=== PATIENT | female | born 1960 | race Caucasian/White ===

== ENCOUNTER 2016-08-19 18:27 | Inpatient (IN) | payer MEDICARE, OTHER ==
[~2016-08-19] VITALS: Ht 175.3 cm; Wt 79.8 kg
--- NOTE | 2016-08-19 18:54 | NUR ---
PT IS MEDICALLY CLEARED BY DR ACE. OFFERED FLUIDS AND COMFORT MEASURES.
[2016-08-19] MEDS ORDERED: DOCU100C36 PO (19:14)
[2016-08-19] MEDS ORDERED: ESCI10TA PO (19:14)
[2016-08-19] MEDS ORDERED: ACET325T53 PO (19:14)
[2016-08-19] MEDS ORDERED: POTA20TA83 PO (19:14)
[2016-08-19] MEDS ORDERED: MAGN2PIG IV (19:14)
[2016-08-19] MEDS ORDERED: IRON PO (19:14)
[2016-08-19] MEDS ORDERED: MORP2SYR IV (19:14)
[2016-08-19] MEDS ORDERED: ASPI81TA31 PO (19:14)
[2016-08-19] MEDS ORDERED: FAMO-132 PO (19:14)
[2016-08-19] MEDS ORDERED: PROP10TA10 PO (19:14)
[2016-08-19] MEDS ORDERED: MVI PO (19:14)
[2016-08-19] MEDS ORDERED: ZIPR20VI IM (19:14)
[2016-08-19] MEDS ORDERED: HYDR-3972 PO (19:14)
[2016-08-19] MEDS ORDERED: BENZ2TAB7 PO (19:14)
[2016-08-19] MEDS ORDERED: HYDR20VI6 IV (19:14)
[2016-08-19] MEDS ORDERED: ONDA2VIA2 IV (19:14)
[2016-08-19] MEDS ORDERED: DIVA500T7 PO (19:14)
[2016-08-19] MEDS ORDERED: MINERALS PO (19:14)
[2016-08-19] MEDS ORDERED: PERP2TAB5 PO ×2 (19:14)
--- NOTE | 2016-08-19 19:15 | NUR ---
Received report from MAGNOLIA Mayberry. Assumed care of pt at this time. Pt resting in position of comfort for self. Pt calm and cooperative at this time. Sitter at bedside. Admission pending.
--- NOTE | 2016-08-19 20:29 | NUR ---
Report called to MAGNOLIA Ambrocio. Preparing to transfer pt to the mental health unit
[2016-08-19] MEDS ORDERED: MAG HYDROX/AL HYDROX/SIMETH 30 ML LIQUID UDC PO PRN (21:00)
[2016-08-19] MEDS ORDERED: ACETAMINOPHEN 325 MG TABLET PO PRN (21:00)
[2016-08-19] MEDS ORDERED: MAGNESIUM HYDROXIDE 30 ML LIQUID UDC PO PRN (21:00)
[2016-08-19] MEDS ORDERED: TEMAZEPAM 7.5 MG CAPSULE PO PRN (21:00)
--- NOTE | 2016-08-19 22:51 | NUR ---
AT APPROX 2049, PATIENT WAS ADMITTED TO [facility] FROM [facility] ER ON A 5150 HOLD R/T SI STARTING ON 08/19/16 AT 1600 AND ENDINGS ON 08/22/16 AT 1600. PATIENT WAS CALM, AN COOPERATIVE AT TIME OF ADMISSION. FULL REPORT WAS OBTAINED BY ER NURSE PURVI. PATIENT WAS INFORMED OF HOLD, PATIENT'S RIGHTS AND ROOM, AND SHE VERBALIZED UNDERSTANDING. SHE DENIES ANY SI OR HI AT THIS TIME.
[2016-08-20 01:35] VITALS: BP 126/65
--- NOTE | 2016-08-20 06:55 | NUR ---
Nurses notes:GPS Patient refused blood drawn this morning. encourage x 3 yet still refused, she said, "I don't need any labs, i am leaving today, don't bother me." patient also refused to give a clean catch urine sample at this time. we will continue to encourage.
[2016-08-20] MEDS: NICOTINE 21 MG/24HR PATCH TD SCH (08:39)
[2016-08-20] MEDS ORDERED: ESCITALOPRAM OXALATE 10 MG TABLET NG SCH (14:15)
[2016-08-20] MEDS: DIVALPROEX 500 MG TABLET.DR PO SCH ×2 (15:30→20:35)
[2016-08-20] MEDS: BENZTROPINE MESYLATE 0.5 MG TABLET PO SCH ×2 (15:30→17:05)
--- NOTE | 2016-08-20 15:47 | NUR ---
Initial discharge instructions: [facility] at [facility] [[address] [place] [address]] [Tire Technician: Alejandra Kay ]. SW spoke with the patient's mother/conservator Analisa Bartholomew [phone] or [phone] who stated that she would like for the patient to return to the facility upon discharge. PIOTR spoke with the patient who also stated that she would like to return to the facility upon discharge. SW spoke with the school social worker at the facility, Alejandra who stated that they will be able to accept the patient back upon discharge. PIOTR will speak with the patient, family, and MD regarding most appropriate discharge plan. SS will form a safe and proper discharge.
[2016-08-20 16:00] VITALS: BP 131/69
[2016-08-20] MEDS ORDERED: HYDROCODONE/APAP 5-325MG TABLET PO PRN (20:00)
[2016-08-20 20:58] VITALS: BP 98/54
[2016-08-20] MEDS: OLANZAPINE ZYDIS 5 MG TAB.RAPDIS PO SCH (21:00)
[2016-08-21 07:30] VITALS: BP 92/51
[2016-08-21] MEDS: FAMOTIDINE 20 MG TABLET PO SCH ×2 (08:14→16:16)
[2016-08-21] MEDS: ESCITALOPRAM OXALATE 10 MG TABLET PO SCH (08:14)
[2016-08-21] MEDS: DOCUSATE SODIUM 100 MG CAPSULE PO SCH (08:14)
[2016-08-21] MEDS: ASPIRIN 81 MG TAB.CHEW PO SCH (08:14)
[2016-08-21] MEDS: MULTIVIT, IRON, MIN NO. 8, FA TABLET PO SCH (08:14)
[2016-08-21] MEDS: PROPRANOLOL HCL 10 MG TABLET PO SCH ×2 (08:15→16:19)
[2016-08-21] MEDS: DIVALPROEX 500 MG TABLET.DR PO SCH ×2 (08:15→20:14)
[2016-08-21] MEDS: NICOTINE 21 MG/24HR PATCH TD SCH (08:16)
[2016-08-21] MEDS: BENZTROPINE MESYLATE 0.5 MG TABLET PO SCH ×2 (08:16→16:16)
[2016-08-21] MEDS ORDERED: MINERALS PO SCH (09:00)
[2016-08-21] MEDS ORDERED: IRON PO SCH (09:00)
[2016-08-21] MEDS ORDERED: MVI PO SCH (09:00)
[2016-08-21 15:48] VITALS: BP 94/62
[2016-08-21] MEDS: OLANZAPINE ZYDIS 5 MG TAB.RAPDIS PO SCH (20:15)
[2016-08-21 20:55] VITALS: BP 96/57
[2016-08-21 21:00] VITALS: BP 102/60
--- NOTE | 2016-08-22 06:40 | NUR ---
GPS: REMAIN CALM AND COOPERATIVE. SLEPT 6 HRS THROUGH THE NIGHT.CONTINUE PLAN OF CARE.
[2016-08-22 07:30] VITALS: BP 95/50
[2016-08-22] MEDS: DOCUSATE SODIUM 100 MG CAPSULE PO SCH (08:59)
[2016-08-22] MEDS: ESCITALOPRAM OXALATE 10 MG TABLET PO SCH (08:59)
[2016-08-22] MEDS: ASPIRIN 81 MG TAB.CHEW PO SCH (08:59)
[2016-08-22] MEDS: DIVALPROEX 500 MG TABLET.DR PO SCH ×2 (08:59→20:11)
[2016-08-22] MEDS: BENZTROPINE MESYLATE 0.5 MG TABLET PO SCH ×2 (08:59→18:05)
[2016-08-22] MEDS: MULTIVIT, IRON, MIN NO. 8, FA TABLET PO SCH (08:59)
[2016-08-22] MEDS: FAMOTIDINE 20 MG TABLET PO SCH ×2 (08:59→18:05)
[2016-08-22] MEDS: NICOTINE 21 MG/24HR PATCH TD SCH (09:00)
[2016-08-22] MEDS: PROPRANOLOL HCL 10 MG TABLET PO SCH ×2 (09:00→17:00)
[2016-08-22 16:00] VITALS: BP 88/48
[2016-08-22 16:48] VITALS: BP 101/52
[2016-08-22] MEDS: OLANZAPINE ZYDIS 5 MG TAB.RAPDIS PO SCH (20:11)
[2016-08-22 21:38] VITALS: BP 100/57
--- NOTE | 2016-08-23 06:42 | NUR ---
GPS: REMAIN CALM AND COOPERATIVE. SLEPT 07:30 HRS THROUGH THE NIGHT.CONTINUE PLAN OF CARE.
[2016-08-23 07:30] VITALS: BP 104/59
[2016-08-23] MEDS: NICOTINE 21 MG/24HR PATCH TD SCH (08:11)
[2016-08-23] MEDS: DIVALPROEX 500 MG TABLET.DR PO SCH ×2 (08:11→20:05)
[2016-08-23] MEDS: MULTIVIT, IRON, MIN NO. 8, FA TABLET PO SCH (08:11)
[2016-08-23] MEDS: FAMOTIDINE 20 MG TABLET PO SCH ×2 (08:11→16:13)
[2016-08-23] MEDS: DOCUSATE SODIUM 100 MG CAPSULE PO SCH (08:11)
[2016-08-23] MEDS: ASPIRIN 81 MG TAB.CHEW PO SCH (08:11)
[2016-08-23] MEDS: ESCITALOPRAM OXALATE 10 MG TABLET PO SCH (08:11)
[2016-08-23] MEDS: BENZTROPINE MESYLATE 0.5 MG TABLET PO SCH ×2 (08:11→16:13)
[2016-08-23] MEDS: PROPRANOLOL HCL 10 MG TABLET PO SCH ×2 (08:14→16:13)
[2016-08-23 16:00] VITALS: BP 99/66
[2016-08-23] MEDS: OLANZAPINE ZYDIS 5 MG TAB.RAPDIS PO SCH (20:06)
[2016-08-23 20:54] VITALS: BP 112/65
[2016-08-24] MEDS: NICOTINE 21 MG/24HR PATCH TD SCH (08:33)
[2016-08-24] MEDS: ASPIRIN 81 MG TAB.CHEW PO SCH (08:33)
[2016-08-24] MEDS: DIVALPROEX 500 MG TABLET.DR PO SCH ×2 (08:33→20:07)
[2016-08-24] MEDS: BENZTROPINE MESYLATE 0.5 MG TABLET PO SCH ×2 (08:34→16:20)
[2016-08-24] MEDS: PROPRANOLOL HCL 10 MG TABLET PO SCH ×2 (08:34→16:20)
[2016-08-24] MEDS: FAMOTIDINE 20 MG TABLET PO SCH ×2 (08:34→16:20)
[2016-08-24] MEDS: DOCUSATE SODIUM 100 MG CAPSULE PO SCH (08:34)
[2016-08-24] MEDS: ESCITALOPRAM OXALATE 10 MG TABLET PO SCH (08:34)
[2016-08-24] MEDS: MULTIVIT, IRON, MIN NO. 8, FA TABLET PO SCH (08:34)
[2016-08-24 15:31] VITALS: BP 111/59
[2016-08-24] MEDS: OLANZAPINE ZYDIS 5 MG TAB.RAPDIS PO SCH (20:08)
[2016-08-24 20:14] VITALS: BP 110/72
--- NOTE | 2016-08-24 20:34 | NUR ---
pt is very visible on the unit, labile and unpredictable, received phone call from mom, able to make needs known, requested for sandwich, other needs checked and carried out, will continue to monitor closely.
[2016-08-25 07:30] VITALS: BP 117/63
[2016-08-25] MEDS: DOCUSATE SODIUM 100 MG CAPSULE PO SCH (08:27)
[2016-08-25] MEDS: ASPIRIN 81 MG TAB.CHEW PO SCH (08:27)
[2016-08-25] MEDS: MULTIVIT, IRON, MIN NO. 8, FA TABLET PO SCH (08:27)
[2016-08-25] MEDS: FAMOTIDINE 20 MG TABLET PO SCH ×2 (08:27→17:46)
[2016-08-25] MEDS: PROPRANOLOL HCL 10 MG TABLET PO SCH ×2 (08:28→17:00)
[2016-08-25] MEDS: DIVALPROEX 500 MG TABLET.DR PO SCH ×2 (08:28→20:20)
[2016-08-25] MEDS: BENZTROPINE MESYLATE 0.5 MG TABLET PO SCH ×2 (08:28→17:46)
[2016-08-25] MEDS: ESCITALOPRAM OXALATE 10 MG TABLET PO SCH (08:29)
[2016-08-25] MEDS: NICOTINE 21 MG/24HR PATCH TD SCH (08:29)
[2016-08-25] MEDS: CLONAZEPAM 0.5 MG TABLET PO PRN (11:51)
[2016-08-25 15:45] VITALS: BP 100/55
[2016-08-25 20:00] VITALS: BP 110/61
[2016-08-25] MEDS: OLANZAPINE ZYDIS 5 MG TAB.RAPDIS PO SCH (20:21)
[2016-08-26 07:30] VITALS: BP 122/61
[2016-08-26 08:06] LABS: BASOPHILS % (AUTO) 0.6 % (0.0-2.0); EOSINOPHILS # (AUTO) 0.1 K/uL (0.0-0.7); EOSINOPHILS % (AUTO) 1.1 % (0.0-7.0); HEMOGLOBIN 13.4 G/DL (12.0-16.0); LYMPHOCYTES # (AUTO) 5.4 K/UL (0.8-4.8); LYMPHOCYTES % (AUTO) 70.6 % (20.5-51.5); MEAN CORPUSCULAR HEMOGLOBIN 32.8 UUG (27.0-31.0); MEAN CORPUSCULAR HGB CONC 34 g/dL (32.0-37.0); MEAN CORPUSCULAR VOLUME 97.7 FL (81.0-99.0); MONOCYTES # (AUTO) 0.4 K/UL (0.1-1.30); MONOCYTES % (AUTO) 5.3 % (0.0-11.0); NEUTROPHILS # (AUTO) 1.7 K/UL (1.8-8.9); NEUTROPHILS % (AUTO) 22.4 % (38.5-71.5); PLATELET COUNT (AUTO) 190 K/UL (150-450); WHITE BLOOD COUNT (AUTO) 7.6 K/UL (4.0-11.2)
[2016-08-26] MEDS: NICOTINE 21 MG/24HR PATCH TD SCH (09:00)
[2016-08-26 09:07] LABS: BILIRUBIN,TOTAL 0.2 mg/dL (0.2-1.0); CREATININE 0.8 mg/dL (0.6-1.3); MAGNESIUM 1.7 mg/dL (1.8-2.4); PHOSPHOROUS 3.6 mg/dL (2.5-4.9); POTASSIUM 4.2 mmol/L (3.5-5.1); TOTAL PROTEIN, SERUM 6.7 g/dL (6.4-8.2)
[2016-08-26 09:27] LABS: THYROID STIMULATING HORMONE 1.278 mIU/mL (0.358-3.740)
[2016-08-26] MEDS: DIVALPROEX 500 MG TABLET.DR PO SCH ×2 (09:38→20:38)
[2016-08-26] MEDS: BENZTROPINE MESYLATE 0.5 MG TABLET PO SCH ×2 (09:38→17:37)
[2016-08-26] MEDS: MULTIVIT, IRON, MIN NO. 8, FA TABLET PO SCH (09:39)
[2016-08-26] MEDS: FAMOTIDINE 20 MG TABLET PO SCH ×2 (09:39→17:36)
[2016-08-26] MEDS: ESCITALOPRAM OXALATE 10 MG TABLET PO SCH (09:39)
[2016-08-26] MEDS: DOCUSATE SODIUM 100 MG CAPSULE PO SCH (09:39)
[2016-08-26] MEDS: ASPIRIN 81 MG TAB.CHEW PO SCH (09:39)
[2016-08-26] MEDS ORDERED: MAGNESIUM OXIDE 400 MG TABLET PO ONE (10:15)
[2016-08-26 10:25] LABS: EOSINOPHILS % (MANUAL) 1 % (0-8); LYMPHOCYTES % (MANUAL) 76 % (20-40); MONOCYTES % (MANUAL) 6 % (2-10); NEUTROPHILS % (MANUAL) 17 % (42-75)
[2016-08-26 16:00] VITALS: BP 96/57
[2016-08-26] MEDS: ATORVASTATIN 10 MG TABLET PO SCH (20:38)
[2016-08-26 20:50] VITALS: BP 120/78
[2016-08-26] MEDS ORDERED: OLANZAPINE ZYDIS 5 MG TAB.RAPDIS PO SCH (21:00)
--- NOTE | 2016-08-26 21:56 | NUR ---
PATIENT RECEIVED IN ACTIVITIES ROOM PLAYING CARDS. PATIENT IS ALERT/ORIENTED X2. PATIENT HAS FLAT AFFECT, LABILE MOOD AND UNPREDICATABLE AT TIMES, DISHEVELED APPEARANCE, BIZARRE UPON APPROACH. PATIENT IS COMPLAINT WITH MEDICATION. PATIENT DENIES PAIN AT THIS TIME, WILL CONTINUE TO MONITOR. NO AGGRESSIVE OR COMBATIVE BEHAVIOR. PATIENT DENIES SI WILL CONTINUE TO MONITOR, PATIENT ENCOURAGED TO EXPRESS FEELINGS AND CONCERNS.
[2016-08-27 07:30] VITALS: BP 107/51
[2016-08-27] MEDS: MULTIVIT, IRON, MIN NO. 8, FA TABLET PO SCH (08:37)
[2016-08-27] MEDS: ASPIRIN 81 MG TAB.CHEW PO SCH (08:37)
[2016-08-27] MEDS: DOCUSATE SODIUM 100 MG CAPSULE PO SCH (08:37)
[2016-08-27] MEDS: ESCITALOPRAM OXALATE 10 MG TABLET PO SCH (08:38)
[2016-08-27] MEDS: FAMOTIDINE 20 MG TABLET PO SCH ×2 (08:40→18:10)
[2016-08-27] MEDS: DIVALPROEX 500 MG TABLET.DR PO SCH ×2 (08:40→20:40)
[2016-08-27] MEDS: BENZTROPINE MESYLATE 0.5 MG TABLET PO SCH ×2 (08:40→18:10)
[2016-08-27] MEDS: NICOTINE 21 MG/24HR PATCH TD SCH (08:45)
[2016-08-27 16:06] VITALS: BP 99/55
[2016-08-27 19:30] VITALS: BP 105/64
[2016-08-27] MEDS: ATORVASTATIN 10 MG TABLET PO SCH (20:40)
[2016-08-27] MEDS ORDERED: OLANZAPINE ZYDIS 5 MG TAB.RAPDIS PO SCH (21:00)
--- NOTE | 2016-08-28 06:35 | NUR ---
GPS: REMAIN CALM AND COOPERATIVE. SLEPT 07:30 HRS THROUGH THE NIGHT. REFUSED SHOWER THIS MORNING ,CONTINUE PLAN OF CARE.
--- NOTE | 2016-08-28 07:07 | NUR ---
GPS: PATIENT REFUSED AM LAB. DAY SHIFT NURSE MADE AWARE.
[2016-08-28 07:30] VITALS: BP 101/63
[2016-08-28] MEDS: ESCITALOPRAM OXALATE 10 MG TABLET PO SCH (08:44)
[2016-08-28] MEDS: DOCUSATE SODIUM 100 MG CAPSULE PO SCH (08:45)
[2016-08-28] MEDS: BENZTROPINE MESYLATE 0.5 MG TABLET PO SCH (08:45)
[2016-08-28] MEDS: ASPIRIN 81 MG TAB.CHEW PO SCH (08:45)
[2016-08-28] MEDS: DIVALPROEX 500 MG TABLET.DR PO SCH ×2 (08:46→20:30)
[2016-08-28] MEDS: FAMOTIDINE 20 MG TABLET PO SCH ×2 (08:46→17:58)
[2016-08-28] MEDS: MULTIVIT, IRON, MIN NO. 8, FA TABLET PO SCH (08:46)
[2016-08-28] MEDS: NICOTINE 21 MG/24HR PATCH TD SCH (08:49)
[2016-08-28 17:06] VITALS: BP 114/70
[2016-08-28 19:51] VITALS: BP 116/66
[2016-08-28] MEDS: ATORVASTATIN 10 MG TABLET PO SCH (20:23)
[2016-08-28] MEDS: OLANZAPINE ZYDIS 5 MG TAB.RAPDIS PO SCH (20:24)
--- NOTE | 2016-08-29 06:58 | NUR ---
Remains compliant wuth medication regiment and plan of care. No noted or reported S/I; H/I no delusion or hallucination during the shift.
[2016-08-29 07:53] VITALS: BP 109/55
[2016-08-29] MEDS: NICOTINE 21 MG/24HR PATCH TD SCH (09:00)
[2016-08-29] MEDS: ESCITALOPRAM OXALATE 10 MG TABLET PO SCH (09:06)
[2016-08-29] MEDS: MULTIVIT, IRON, MIN NO. 8, FA TABLET PO SCH (09:06)
[2016-08-29] MEDS: DIVALPROEX 500 MG TABLET.DR PO SCH ×2 (09:06→20:25)
[2016-08-29] MEDS: DOCUSATE SODIUM 100 MG CAPSULE PO SCH ×2 (09:07→18:10)
[2016-08-29] MEDS: FAMOTIDINE 20 MG TABLET PO SCH ×2 (09:07→18:10)
[2016-08-29] MEDS: ASPIRIN 81 MG TAB.CHEW PO SCH (09:07)
[2016-08-29] MEDS ORDERED: MAGNESIUM HYDROXIDE 30 ML LIQUID UDC PO ONE (10:15)
[2016-08-29 20:13] VITALS: BP 120/73
[2016-08-29] MEDS: ATORVASTATIN 10 MG TABLET PO SCH (20:25)
[2016-08-29] MEDS: OLANZAPINE ZYDIS 5 MG TAB.RAPDIS PO SCH (20:25)
[2016-08-30 07:30] VITALS: BP 126/64
[2016-08-30] MEDS: FAMOTIDINE 20 MG TABLET PO SCH ×2 (08:55→16:52)
[2016-08-30] MEDS: ESCITALOPRAM OXALATE 10 MG TABLET PO SCH (08:56)
[2016-08-30] MEDS: DIVALPROEX 500 MG TABLET.DR PO SCH ×2 (08:56→20:21)
[2016-08-30] MEDS: ASPIRIN 81 MG TAB.CHEW PO SCH (08:56)
[2016-08-30] MEDS: MULTIVIT, IRON, MIN NO. 8, FA TABLET PO SCH (08:56)
[2016-08-30] MEDS: NICOTINE 21 MG/24HR PATCH TD SCH (09:00)
[2016-08-30] MEDS: DOCUSATE SODIUM 100 MG CAPSULE PO SCH ×2 (09:03→16:52)
[2016-08-30 15:47] VITALS: BP 113/65
[2016-08-30] MEDS: CLONAZEPAM 0.5 MG TABLET PO PRN (16:52)
[2016-08-30] MEDS: ATORVASTATIN 10 MG TABLET PO SCH (20:20)
[2016-08-30] MEDS: OLANZAPINE ZYDIS 5 MG TAB.RAPDIS PO SCH (20:21)
[2016-08-30 20:32] VITALS: BP 101/57
--- NOTE | 2016-08-31 06:36 | NUR ---
Patient slept for 7.30 hrs through the night. Remains compliant with medication regiment and plan of care. No noted or reported S/I; H/I no delusion or hallucination during the shift. we will continue to monitor
[2016-08-31 07:30] VITALS: BP 102/58
[2016-08-31] MEDS: DOCUSATE SODIUM 100 MG CAPSULE PO SCH ×2 (08:38→17:12)
[2016-08-31] MEDS: FAMOTIDINE 20 MG TABLET PO SCH ×2 (08:39→17:12)
[2016-08-31] MEDS: DIVALPROEX 500 MG TABLET.DR PO SCH ×2 (08:39→20:04)
[2016-08-31] MEDS: ESCITALOPRAM OXALATE 10 MG TABLET PO SCH (08:39)
[2016-08-31] MEDS: ASPIRIN 81 MG TAB.CHEW PO SCH (08:39)
[2016-08-31] MEDS: MULTIVIT, IRON, MIN NO. 8, FA TABLET PO SCH (08:39)
[2016-08-31] MEDS: NICOTINE 21 MG/24HR PATCH TD SCH (08:43)
[2016-08-31 16:48] VITALS: BP 97/59
[2016-08-31] MEDS: OLANZAPINE ZYDIS 5 MG TAB.RAPDIS PO SCH (20:04)
[2016-08-31] MEDS: ATORVASTATIN 10 MG TABLET PO SCH (20:04)
[2016-08-31 20:49] VITALS: BP 94/61
--- NOTE | 2016-08-31 22:00 | NUR ---
received to care, isolative, but pleasant upon approach. compliant with medications and staff direction. as of 2199, she appears to be asleep. no distress noted. will continue to monitor closely.
--- NOTE | 2016-09-01 06:00 | NUR ---
slept 8.5 hours, last night. continues to sleep. but is easy to awaken. no distress noted. will continue to monitor closely.
[2016-09-01 07:55] VITALS: BP 106/59
[2016-09-01] MEDS: NICOTINE 21 MG/24HR PATCH TD SCH (09:00)
[2016-09-01] MEDS ORDERED: ESCITALOPRAM OXALATE 10 MG TABLET PO SCH (09:00)
[2016-09-01] MEDS: ASPIRIN 81 MG TAB.CHEW PO SCH (09:30)
[2016-09-01] MEDS: DOCUSATE SODIUM 100 MG CAPSULE PO SCH (09:30)
[2016-09-01] MEDS: MULTIVIT, IRON, MIN NO. 8, FA TABLET PO SCH (09:30)
[2016-09-01] MEDS: FAMOTIDINE 20 MG TABLET PO SCH (09:30)
[2016-09-01] MEDS: DIVALPROEX 500 MG TABLET.DR PO SCH (09:31)
--- NOTE | 2016-09-01 11:14 | NUR ---
DC Note: The patient will be discharged today back to [facility] [[address] [place] [address]] [Bowling Ball Assembler: Alejandra Kay ]. PIOTR spoke with the regional owner operator truck driver of the facility, Alejandra who stated that they will be accepting the patient back today. PIOTR also spoke with Alejandra Mccormick's partner who stated that they will provide private transportation for the patient back to the facility between 1:30 and 2:00 pm today. PIOTR spoke with the patient's mother/conservator Analisa Bartholomew [phone] or [phone] and she is aware and agreeable with the discharge plan. PIOTR spoke with the patient who is also aware and agreeable with the discharge plan. The patient will follow-up with her telegraph repeater installer Dr. Renee. The patient does not have a psychiatrist and may follow-up with Dr. Maya Wilder , Dr. Misha Dhaliwal , or Dr. Helga Barber . For smoking cessation, patient was referred to [employer] [employer] 800-LUNGUSA and [employer] [phone]. Patient was also referred to [facility] at the [facility] [[address], [place], [place]] on , 09/03/16 at 7:00 pm for smoking cessation.
--- NOTE | 2016-09-01 13:45 | NUR ---
GPS/RN- DISCHARGE NOTE Patient is alert and oriented to person place and situation, compliant with meds and care able to verbalize needs, denies any SI/HI,no hallucinations, no delusions, anxious redirectable. The patient will be discharged today back to [facility] [[address] [place] [address]] [[employer]: Alejandra Kay ]. The patient will follow-up with her cattle sticker Dr. Renee. The patient does not have a psychiatrist and may follow-up with Dr. Maya Wilder , Dr. Misha Dhaliwal , or Dr. Helga Barber . patient instructed on discharge and follow up care, medications, smoking cessations. questions and concerns addressed. all needs attended to discharged in stable condition at this time
== END 2016-09-01 13:45 | DRG 885 ==
LOC: ER 18:29 → GPS 20:36
PROVIDERS: ADMIT Psychiatry & Neurology Psychiatry; ATTEND Contractor
DX: F25.1 Schizoaffective disorder, depressive type (principal); K21.9 Gastro-esophageal reflux disease without esophagitis; Z85.3 Personal history of malignant neoplasm of breast; Z90.11 Acquired absence of right breast and nipple; Z91.5 Personal history of self-harm; Z87.440 Personal history of urinary (tract) infections; I10 Essential (primary) hypertension; E66.9 Obesity, unspecified; Z68.26 Body mass index [BMI] 26.0-26.9, adult; E78.5 Hyperlipidemia, unspecified; E83.42 Hypomagnesemia; E88.09 Other disorders of plasma-protein metabolism, not elsewhere classified; K59.00 Constipation, unspecified; Z79.899 Other long term (current) drug therapy; Z79.82 Long term (current) use of aspirin
CPT/HCPCS: 36415; 80164; 82306; 83735; 84100; 84443; 85025

== ENCOUNTER 2016-09-04 13:45 | Emergency (ER) | payer MEDICARE, OTHER ==
[~2016-09-04] VITALS: Ht 172.7 cm; Wt 77.1 kg
[~2016-09-04 13:45] MED LIST: ACET325T53 PO; ASPI81TA31 PO; DOCU100C36 PO; FAMO-132 PO; HYDR-3972 PO; HYDR20VI6 IV; IRON PO; MAGN2PIG IV; MINERALS PO; MORP2SYR IV; MVI PO; ONDA2VIA2 IV; POTA20TA83 PO; PROP10TA10 PO
--- NOTE | 2016-09-04 14:04 | NUR ---
BIB AMBULANCE FROM [facility]. PT IS A 56 Y/O FEMALE. NAD NOTED. VSS. AMBULATORY WITH [facility]AD[facility] GAIT. HERE FOR PSYCH EVALUATION. PT IS HIGHLY GUARDED, FOCUSED ON DISCHARGED. BLUNTED AFFECT. BUT COOPERATIVE WITH STAFF AT THIS TIME. DENIES SI, +HI, +AH. PT IS HIGHLY UNPREDICTABLE AT THIS TIME. DENIES CP/SOB/FRANCISCO/N/V/F/C. PENDING MEDICAL CLEARANCE
[2016-09-04] MEDS ORDERED: DIVA500T2 PO (14:12)
[2016-09-04] MEDS ORDERED: MULT1TAB73 PO (14:12)
[2016-09-04] MEDS ORDERED: ATOR10TA PO (14:12)
[2016-09-04 14:14] LABS: BASOPHILS % (AUTO) 0.3 % (0.0-2.0); EOSINOPHILS # (AUTO) 0.1 K/uL (0.0-0.7); EOSINOPHILS % (AUTO) 0.6 % (0.0-7.0); HEMATOCRIT 35.5 % (37-47); HEMOGLOBIN 11.9 G/DL (12.0-16.0); LYMPHOCYTES # (AUTO) 4.2 K/UL (0.8-4.8); LYMPHOCYTES % (AUTO) 49.8 % (20.5-51.5); MEAN CORPUSCULAR HGB CONC 34 g/dL (32.0-37.0); MEAN CORPUSCULAR VOLUME 97.9 FL (81.0-99.0); MONOCYTES # (AUTO) 0.8 K/UL (0.1-1.30); MONOCYTES % (AUTO) 9.5 % (0.0-11.0); NEUTROPHILS # (AUTO) 3.4 K/UL (1.8-8.9); NEUTROPHILS % (AUTO) 39.8 % (38.5-71.5); PLATELET COUNT (AUTO) 248 K/UL (150-450); RED BLOOD CELL COUNT(AUTO) 3.62 MIL/UL (4.2-5.4); WHITE BLOOD COUNT (AUTO) 8.6 K/UL (4.0-11.2)
[2016-09-04 14:29] LABS: CARBON DIOXIDE 28 mmol/L (21-32); CHLORIDE 106 mmol/L (98-107); CREATININE 0.7 mg/dL (0.6-1.3); GLUCOSE 107 mg/dL (74-106); POTASSIUM 4.2 mmol/L (3.5-5.1); UREA NITROGEN, BLOOD 19 mg/dL (7-18)
[2016-09-04 14:34] LABS: ALANINE AMINOTRANSFERASE 36 U/L (14-59); ALKALINE PHOSPHATASE 81 U/L (50-136); ASPARTATE AMINOTRANSFERASE 23 U/L (15-37); BILIRUBIN,DIRECT 0.1 mg/dL (0.0-0.2); BILIRUBIN,TOTAL 0.3 mg/dL (0.2-1.0)
[2016-09-04 14:37] LABS: ACETAMINOPHEN < 2.0 ug/mL (10-30)
[2016-09-04 14:56] LABS: ETHANOL < 3 MG/DL (0-0)
--- NOTE | 2016-09-04 15:06 | NUR ---
JOVON SCHWARTZ IS 25 MINS FOR PSYCH EVAL
--- NOTE | 2016-09-04 15:27 | NUR ---
PT IS HIGH ELOPEMENT RISK. HIGHLY FOCUSED ON DISCHARGED. EASILY AGITATED.
--- NOTE | 2016-09-04 15:57 | NUR ---
JOVON HARRIS AT BEDSIDE PERFORMING EVALUATION
--- NOTE | 2016-09-04 16:08 | NUR ---
Called [facility] for transport back to SNF, eta 1715.
[2016-09-04 16:24] LABS: *BILIRUBIN,URIN NEGATIVE (NEGATIVE); *BLOOD, URINE NEGATIVE (NEGATIVE); *CLARITY,URINE SLIGHTLY CLOUDY (CLEAR); *COLOR,URINE YELLOW (YELLOW); *KETONES,URINE NEGATIVE (NEGATIVE); *PROTEIN,URINE NEGATIVE (NEGATIVE); LEUKOCYTE ESTERASE ,URINE 1+ (NEGATIVE); NITRITE, URINE NEGATIVE (NEGATIVE); UGLUCOSE NEGATIVE (NEGATIVE)
[2016-09-04 16:33] LABS: BACTERIA,URINE MODERATE /HPF (NONE SEEN); SQUAMOUS EPITHELIAL CELL,UR MANY /HPF (NONE SEEN)
[2016-09-04 16:35] LABS: *AMPHETAMINE, URINE NEGATIVE (NEGATIVE); *BARBITURATE, URINE NEGATIVE (NEGATIVE); *CANNABINOID, URINE NEGATIVE (NEGATIVE); *COCCAINE, URINE NEGATIVE (NEGATIVE); *OPIATE, URINE NEGATIVE (NEGATIVE); *PHENCYCLIDINE SCREEN,URINE NEGATIVE (NEGATIVE)
--- NOTE | 2016-09-04 18:27 | NUR ---
BEDSIDE REPORT GIVEN TO Gareth AYOUB OF EMS UNIT 19. AWARE OF PT'S CURRENT CONDITION AND WILL CONTINUE FURTHER PLAN OF CARE.
[2016-09-04 18:28] VITALS: BP 149/79
--- NOTE | 2016-09-04 18:29 | NUR ---
Patient discharged to home in stable conditon. Written and verbal after care instructions given to paramedics, ems uNIT #19. Pt is aware that she will be transfered back to SNF. No further questions or concerns noted prior on leaving the ED.
== END 2016-09-04 18:46 | disposition home or self-care (01) ==
LOC: ER 13:45
DX: R44.0 Auditory hallucinations (principal); F41.9 Anxiety disorder, unspecified; I10 Essential (primary) hypertension; F10.20 Alcohol dependence, uncomplicated; F31.9 Bipolar disorder, unspecified; F19.10 Other psychoactive substance abuse, uncomplicated; F20.9 Schizophrenia, unspecified; C50.911 Malignant neoplasm of unspecified site of right female breast; Z88.8 Allergy status to other drugs, medicaments and biological substances; Z79.82 Long term (current) use of aspirin
CPT/HCPCS: 36415; 80048; 80076; 80307; 81001; 85025; 93005; 99285; G0480 ×2; G0481